=== PATIENT | female | born 1995 | race Caucasian/White ===

== ENCOUNTER 2017-01-27 23:54 | Emergency (ER) | payer MEDICAID, OTHER ==
[~2017-01-27] VITALS: Ht 162.6 cm; Wt 75.0 kg
[~2017-01-27 23:54] MED LIST: ACET500C5 PO
[2017-01-27 23:58] VITALS: Ht 162.6 cm; Wt 75.0 kg
[2017-01-28] MEDS ORDERED: KETOROLAC 15 MG INJ IM STA (04:38)
[2017-01-28] MEDS ORDERED: ONDANSETRON (ODT) 4 MG TAB ODT STA (04:38)
[2017-01-28] MEDS ORDERED: IBUP400T22 PO (04:45)
--- NOTE | 2017-01-28 04:45 | ERD ---
ER Documentation Chief Complaint Date/Time DATE: 01/28/17 TIME: 04:40 Chief Complaint headache x 2 weeks, nausea HPI This 21-year-old female presents to emergency department with complaint of intermittent headache 2 weeks. Nausea, lightheadedness. Patient denies photosensitivity or sensitivity to sound. Patient states that current headache started at 1999 and has not subsided. Patient reports headache on right sided head, pounding. Patient has had headaches in the past. Denies that this is her worst headache. Last menstrual period 01/14/17. Patient denies blurred vision, change in behavior, difficulty ambulating or moving extremities. ROS All systems reviewed and are negative except as per history of present illness. Medications Home Meds Active Scripts Ibuprofen* (Motrin*) 400 Mg Tab, 400 MG PO Q6, #30 TAB Prov:KVNG IRWIN 01/28/17 Acetaminophen* (Tylophen*) 500 Mg Capsule, 1 CAP PO Q6H Y for PAIN AND OR ELEVATED TEMP, #20 CAP Prov:BRANDIN RIVAS [employer] 07/16/16 Reported Medications [None] No Conflict Check 09/24/11 Allergies Allergies: Coded Allergies: No Known Drug Allergy (Verified Allergy, 09/24/11) PMhx/Soc History of Surgery: No (NO MEDICAL HISTORY; NO SURGERY) Anesthesia Reaction: No Hx Neurological Disorder: No Hx Respiratory Disorders: No Hx Cardiac Disorders: No Hx Psychiatric Problems: No Hx Miscellaneous Medical Probl: No Hx Alcohol Use: No Hx Substance Use: No Hx Tobacco Use: No Smoking Status: Never smoker Physical Exam Vitals Vital Signs Date Time Temp Pulse Resp B/P Pulse Ox O2 Delivery O2 Flow Rate FiO2 01/27/17 23:58 98.6 83 20 120/74 98 Physical Exam Const: No acute distress Head: Atraumatic Eyes: Normal Conjunctiva, PERRLA, EOMI ENT: Neck: Full range of motion.. No paraspinal tenderness Resp: Cardio: Abd: Skin: Back: Ext: Neur: Neuro: M/S: Alert and oriented Face: EOMI, face and pharynx with normal sensation and function Motor: Normal strength throughout Sensation: Normal sensation throughout Speech: Normal Cerebel: Normal coordination Normal gait Normal finger to nose DTR: 2+ and symmetric upper/lower extremities Psych: Normal Mood and Affect Results 24 hrs Laboratory Tests Test 01/28/17 04:59 Bedside Urine pH (LAB) 6.5 Bedside Urine Protein (LAB) Negative Bedside Urine Glucose (UA) Negative Bedside Urine Ketones (LAB) Negative Bedside Urine Blood Trace-intact Bedside Urine Nitrite (LAB) Negative Bedside Urine Leukocyte Esterase (L Negative Current Medications Medications (Trade) Dose Ordered Sig/Maddie Route PRN Reason Start Time Stop Time Status Last Admin Dose Admin Diphenhydramine HCl (Benadryl) 25 mg ONCE ONCE PO 01/28/17 05:00 01/28/17 05:01 DC 01/28/17 05:05 Ketorolac Tromethamine (Toradol) 15 mg ONCE STAT IM 01/28/17 04:38 01/28/17 04:40 DC 01/28/17 05:05 Ondansetron HCl (Zofran Odt) 4 mg ONCE STAT ODT 01/28/17 04:38 01/28/17 04:40 DC 01/28/17 05:05 Procedures/MDM This 21-year-old female presents to emergency department with complaint of intermittent headache 2 weeks with nausea and vomiting. Differential diagnosis includes but not limited to migraine, tension headache, . Low suspicion for subarachnoid bleed. CAT scan will not be obtained. Urine negative for . Patient receives Toradol, Zofran, and Benadryl reassessed after 60 minutes with cessation of headaches. Patient is appropriate for outpatient management follow-up with primary care physician will be discharged with Motrin. Follow-up with primary care physician. I feel the patient is stable for discharge at this time. I have discussed results, examination findings, the treatment plan with the patient and family present prior to discharge. Indications for emergent reevaluation, side effects of medication were also discussed. All questions were answered. Patient verbalizes understanding and agrees with plan of care. Departure Diagnosis: Primary Impression: Headache Headache type: unspecified Headache chronicity pattern: acute headache Intractability: not intractable Qualified Code: R51 - Acute nonintractable headache, unspecified headache type Condition: Good Patient Instructions: Self-Care for Headaches Additional Instructions: Thank you for for coming to [facility] for your care today. Please ask your nurse or provider if you have questions about your care today and do not leave until all your questions have been answered. Please use any medications given as directed and follow-up with your doctor (or the doctor you were referred to) in the next 2-3 days. If you do not have a primary care doctor you may follow up at the [facility] (listed below). You may also use motrin and tylenol as needed for fever and/or pain unless instructed otherwise by your provider or nurse. Indications for more urgent follow-up have been discussed, but you may return to the Emergency Department at ANY time for any worrisome or worsening symptoms. If you have abdominal pain, please know that no test or exam you received is perfect and you should follow up within 8 hours for continued pain. If you had any imaging studies today, such as an X-Ray or CT Scan, these studies will be reviewed later by a radiologist. You will be called if there are important findings that were not identified today, so make sure the contact information you provided at registration is correct. If you received any narcotic pain control medicine today, such as Vicodin, Morphine or Dilaudid, your coordination and judgment may be affected for a number of hours. Please do not drive or operate heavy machinery, and you may want someone to assist you at home. If you were given a prescription for narcotic medication, be aware that it is very addictive- use sparingly and only if necessary. KVNG IRWIN Jan 28, 2017 04:45
[2017-01-28 04:58] LABS: URINE BLOOD (Dip) POC Trace-intact (NEGATIVE)
[2017-01-28] MEDS ORDERED: DIPHENHYDRAMINE 25 MG CAP PO ONE (05:00)
[2017-01-28 06:12] VITALS: BP 116/68; PULSE 64; RESP 16; TEMP 98.6
== END 2017-01-28 06:14 | disposition home or self-care (01) ==
LOC: FTE 23:54
DX: R51 Headache (principal); R11.0 Nausea
CPT/HCPCS: 81003; J1885; Z7610; 96372